=== PATIENT | female | born 2000 | race Caucasian/White ===

== ENCOUNTER → 2021-08-04 | Outpatient (CLI) | payer OTHER ==
[~2021-08-04] MED LIST: ARIPIPRAZOLE20 MG PO; VENLAFAXINE HYD75 M3 PO; VYVANSE30 MG PO
== END | disposition home or self-care (01) ==
LOC: ORTHO 00:32
PROVIDERS: ATTEND Orthopaedic Surgery
DX: M25.512 Pain in left shoulder (principal)